=== PATIENT | female | born 1965 | race Native Hawaiian/Other Pacific Islander ===

== ENCOUNTER 2018-08-18 08:01 | Day surgery (SDC) | payer OTHER, BC ==
[2018-08-09 13:06] VITALS: BMI 28.7
[2018-08-18] MEDS ORDERED: Propofol 10 mg/ml Inj (20 ML) ONE (09:34)
[2018-08-18] MEDS ORDERED: Midazolam 2 MG/2 ML VIAL ONE (09:36)
[2018-08-18 13:16] VITALS: BP 127/77; PULSE 77; RESP 18; TEMP 97.9; O2SAT 100
--- NOTE | 2018-08-19 05:16 | OP ---
PROCEDURE DATE: 08/18/2018 PREOPERATIVE DIAGNOSIS: A 53-year-old 2, para 3 with postmenopausal bleeding and endometrial thickening. SURGEON: Aakash Damon MD DIRECTOR OF ENTERTAINMENT: None. TYPE OF ANESTHESIA: General. ANESTHESIA ADMINISTERED BY: Timothy Foster MD COMPLICATIONS: None. PROCEDURES: MyoSure, dilatation and curettage. DESCRIPTION OF PROCEDURE: After informed consent was obtained, the patient was brought into the operating room, placed on the table where general anesthesia was administered. Once the anesthesia was found to be adequate, the patient was prepped and draped in the normal sterile fashion. Examination of the uterus revealed it to be 8 weeks' size. No pelvic or adnexal masses. Anterior lip of the cervix was grasped with a tenaculum. Gentle dilatation of the cervix was done after that. It was found that there was a polyp on the posterior wall of the uterus. Picture was taken, and the decision was made to use the MyoSure. MyoSure was used to take out the polyp. After that, sharp curettage of the endometrium was done. After that, it was ECC, was sent to Pathology. After that, the tenaculum was taken out. The patient tolerated the procedure well. EBL was 20 mL. Deficit was less than 200 mL. The patient tolerated the procedure well. Lap, sponge, and instrument counts were correct x2. Aakash Damon MD
== END 2018-08-18 13:19 | disposition home or self-care (01) ==
LOC: C.SDS 08:01
PROVIDERS: ATTEND Obstetrics & Gynecology
DX: N84.1 Polyp of cervix uteri (principal); N95.0 Postmenopausal bleeding; R93.89 Abnormal findings on diagnostic imaging of other specified body structures; N71.0 Acute inflammatory disease of uterus; I10 Essential (primary) hypertension; E78.5 Hyperlipidemia, unspecified
CPT/HCPCS: 58120; 88305; J1885; J2250; J2405; J2704; J3010